=== PATIENT | female | born 2000 | race Caucasian/White ===

== ENCOUNTER 2019-08-11 15:25 | Emergency (ER) | payer MEDICAID, OTHER ==
[~2019-08-11] VITALS: Ht 152.4 cm; Wt 90.7 kg
[2019-08-11] MEDS ORDERED: IBUPROFEN 800 MG TAB PO ONE (15:45)
[2019-08-11] MEDS ORDERED: SODIUM CHLORIDE 0.9% 1,000 ML IV ONE (16:15)
[2019-08-11 16:24] LABS: Basophils # (auto) 0 uL; Basophils % (auto) 0.4 % (0.0-2.0); Eosinophils # (auto) 0.1 uL; Eosinophils % (auto) 1.1 % (0.0-7.0); Hematocrit 38.6 % (36.0-46.0); Hemoglobin 13.2 g/dL (12.2-16.2); Lymphocytes # (auto) 0.6 uL; Lymphocytes % (auto) 6.5 % (10.0-50.0); Mean Corpuscular Hemoglobin 29.2 pg (28.0-32.0); Mean Corpuscular Hgb Conc. 34.2 g/dL (32.0-36.0); Mean Corpuscular Volume 85.1 fL (80.0-100.0); Monocytes # (auto) 0.4 uL; Neutrophils # (auto) 8.6 uL; Platelet Count (auto) 247 10^3/uL (140-450); Red Blood Cells 4.53 10^6/uL (4.0-5.20); Red Cell Distribution Width 12.5 % (11.8-14.3); White Blood Cell 9.7 10^3/uL (4.4-10.8)
[2019-08-11 16:36] LABS: Albumin 3.9 g/dL (3.4-5.0); Calcium 9.4 mg/dL (8.5-10.1); Potassium 4.3 mmol/L (3.5-5.1)
[2019-08-11 16:41] LABS: Bilirubin, Total 0.4 mg/dL (0.2-1.0); Total Protein 8.2 g/dL (6.4-8.2)
[2019-08-11 19:15] LABS: Urine Bacteria MANY /hpf (None Seen); Urine Blood TRACE /uL (Negative); Urine WBC 83 /hpf (0 - 5)
[2019-08-11] MEDS ORDERED: ONDANSETRON HCL 4 MG/2 ML VIAL ONE (20:58)
[2019-08-11 21:00] VITALS: BP 132/79
[2019-08-11] MEDS ORDERED: ONDANSETRON HCL 4 MG/2 ML VIAL IV ONE (21:30)
== END 2019-08-11 21:05 | disposition home or self-care (01) ==
LOC: ER 15:25
DX: N39.0 Urinary tract infection, site not specified (principal)
CPT/HCPCS: 36415; 71046; 80053; 81001; 81025; 83605; 85025; 87040; 93005; 96361; 96374; 99284; J2405; J7030

== ENCOUNTER 2019-08-14 00:35 | Emergency (ER) | payer MEDICAID ==
[~2019-08-14] VITALS: Ht 152.4 cm; Wt 81.6 kg
[2019-08-14 01:32] VITALS: BP 140/69
== END 2019-08-14 03:06 | disposition home or self-care (01) ==
LOC: ER 00:35
DX: N39.0 Urinary tract infection, site not specified (principal); K12.0 Recurrent oral aphthae

== ENCOUNTER 2021-02-09 04:09 | Emergency (ER) | payer MEDICAID ==
[~2021-02-09] VITALS: Ht 165.1 cm; Wt 79.4 kg
[2021-02-09 04:13] VITALS: BP 116/103
[2021-02-09 07:27] LABS: Urine Bacteria NONE SEEN /hpf (None Seen); Urine Blood Negative /uL (Negative); Urine Specific Gravity 1.009 (1.001-1.035); Urine WBC 3 /hpf (0 - 5)
== END 2021-02-09 06:36 | disposition left against medical advice (07) ==
LOC: EDBD 04:09 → ER 04:19
DX: R10.13 Epigastric pain (principal); R11.0 Nausea; N18.9 Chronic kidney disease, unspecified
CPT/HCPCS: 81001

== ENCOUNTER 2022-01-25 17:08 | Emergency (ER) | payer MEDICAID, OTHER ==
[~2022-01-25] VITALS: Ht 152.4 cm; Wt 95.0 kg
[2022-01-25 17:19] VITALS: BP 121/75
== END 2022-01-25 17:46 | disposition left against medical advice (07) ==
LOC: EDBD 17:08 → ER 17:08
DX: M25.552 Pain in left hip (principal); Z53.21 Procedure and treatment not carried out due to patient leaving prior to being seen by health care provider; V43.52XA Car driver injured in collision with other type car in traffic accident, initial encounter; Y93.89 Activity, other specified; Y92.410 Unspecified street and highway as the place of occurrence of the external cause; Y99.8 Other external cause status